=== PATIENT | male | born 2000 | race Two or more races ===

== ENCOUNTER 2020-08-24 10:22 | Emergency (ER) | payer SELFPAY ==
[~2020-08-24] VITALS: Ht 185.4 cm; Wt 99.8 kg
[2020-08-24 11:04] VITALS: BP 124/78
[2020-08-24] MEDS ORDERED: SODIUM CHLORIDE 0.9% 1,000 ML IV ONE (11:15)
== END 2020-08-24 11:08 | disposition left against medical advice (07) ==
LOC: ER 10:22
DX: R10.84 Generalized abdominal pain (principal); F12.10 Cannabis abuse, uncomplicated; Z53.29 Procedure and treatment not carried out because of patient's decision for other reasons